=== PATIENT | male | born 1965 ===

== ENCOUNTER 2016-10-13 02:54 | Inpatient (IN) | payer MEDICAID, OTHER ==
[2016-10-13] MEDS ORDERED: Ampicillin/Sulbactam 3 GM in Sodium Chloride 0.9% 100 ML IVPB STA (03:30)
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
[2016-10-13 03:43] LABS: VENOUS BLOOD GAS BASE EXCESS 1.1 mmol/L (0.0-2.0); VENOUS BLOOD GAS PCO2 37 mmHg (40-60); VENOUS BLOOD GAS PO2 60 mm/Hg (30-55); VENOUS BLOOD PH 7.44 (7.32-7.43)
[2016-10-13] MEDS ORDERED: Vancomycin 1 g Inj ONE (03:43)
[2016-10-13 03:47] LABS: BASO # 0.1 K/uL (0.0-0.2); BASO % 0.8 % (0.0-2.0); EOS # 0.5 K/uL (0.0-0.7); EOS % 4.3 % (0.0-4.0); HEMOGLOBIN 12.6 g/dL (12.0-18.0); LYMPH # 2.3 K/uL (1.0-4.3); LYMPH % 20.6 % (20.0-40.0); MEAN CELL VOLUME 88.6 fl (80.0-94.0); MEAN CORPUSCULAR HEMOGLOBIN 30.9 pg (27.0-31.0); MEAN CORPUSCULAR HGB CONC 34.9 g/dL (33.0-37.0); MEAN PLATELET VOLUME 8.2 fl (7.2-11.7); MONO # 1.4 K/uL (0.0-0.8); NEUT % 62.3 % (50.0-75.0); NRBC % 0.1 % (0.0-0.0); RBC 4.08 Mil/uL (4.40-5.90); RED CELL DISTRIBUTION WIDTH 13.4 % (11.5-14.5); WHITE BLOOD COUNT 11.3 K/uL (4.8-10.8)
[2016-10-13] MEDS ORDERED: Sodium Chloride 0.9% 50 ML IV ONE (03:54)
[2016-10-13] MEDS ORDERED: Iohexol 300 100 ML IJ ONE (03:54)
[2016-10-13 03:56] LABS: ALB/GLOB RATIO 1.1 (1.0-2.1); ALT/SGPT 58 U/L (21-72); AST/SGOT 38 U/L (17-59); BLOOD UREA NITROGEN 16 mg/dl (9-20); CALCIUM 8.9 mg/dL (8.4-10.2); GFR AFRICAN-AMERICAN > 60; GFR NON-AFRICAN AMERICAN > 60
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
[2016-10-13] MEDS: Sodium Chloride 0.9% 1,000 ML IV SCH ×3 (08:43→22:01)
[2016-10-13] MEDS: Potassium CL 10mEq/100ml 100 ML IVPB SCH ×2 (08:46→14:54)
[2016-10-13 09:08] LABS: INR 1.1 (0.9-1.2); PARTIAL THROMBOPLASTIN TIME 32.7 Seconds (25.6-37.1); PROTHROMBIN TIME 12.9 Seconds (9.8-13.1)
[2016-10-13] MEDS ORDERED: Piperacillin/Tazobact 3.375 GM in Sodium Chloride 0.9% 100 ML IVPB SCH (10:00)
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
[2016-10-13] MEDS ORDERED: Lactated Ringer's 1,000 ML IV ONE ×2 (12:36)
--- NOTE | 2016-10-13 13:17 | PCM.SURG1 ---
Surgeon's Initial Post Op Note - Surgeon's Notes Surgeon: Aimee Plant Packer: Evi PGY3, Virgil PGY1 Type of Anesthesia: General LMA Pre-Operative Diagnosis: Left thigh abscess Operative Findings: Large left medial thigh abscess w. puss and foreign body Post-Operative Diagnosis: same Operation Performed: Incision and drainage of abscess, removal of foreign body, debridement of abscess wall Specimen/Specimens Removed: cultures and foreign body Estimated Blood Loss: EBL {In ML}: 10 Blood Products Given: N/A Drains Used: No Drains Post-Op Condition: Good Date of Surgery/Procedure: 10/13/16 Time of Surgery/Procedure: 13:17
[2016-10-13] MEDS ORDERED: Oxycodone/Acetaminophen 5/325 mg Tab PO PRN ×2 (13:18→13:19)
[2016-10-13] MEDS ORDERED: Dexamethasone 4 mg/1 ml IVP PRN (13:20)
[2016-10-13] MEDS ORDERED: HYDROmorphone 0.5 mg/0.5 ml ISec IVP PRN (13:20)
[2016-10-13] MEDS ORDERED: Pneumococcal 23-Valent Vaccine IM ONE (13:26)
[2016-10-13 15:35] LABS: BLOOD UREA NITROGEN 10 mg/dl (9-20); CALCIUM 8.3 mg/dL (8.4-10.2); GFR AFRICAN-AMERICAN > 60; GFR NON-AFRICAN AMERICAN > 60
--- NOTE | 2016-10-13 22:44 | CARD ---
APPROVED REPORT EKG Measurement Heart [id number] <Conclusion> Normal sinus rhythm Normal ECG
[2016-10-13] MEDS: Piperacillin/Tazobact 3.375 GM in Sodium Chloride 0.9% 100 ML IVPB SCH (23:36)
[2016-10-14] MEDS: Piperacillin/Tazobact 3.375 GM in Sodium Chloride 0.9% 100 ML IVPB SCH ×4 (05:18→23:05)
[2016-10-14 05:40] LABS: HEMOGLOBIN 11.7 g/dL (12.0-18.0); MEAN CELL VOLUME 90.5 fl (80.0-94.0); MEAN CORPUSCULAR HEMOGLOBIN 30.1 pg (27.0-31.0); MEAN CORPUSCULAR HGB CONC 33.3 g/dL (33.0-37.0); RBC 3.87 Mil/uL (4.40-5.90); RED CELL DISTRIBUTION WIDTH 13.2 % (11.5-14.5); WHITE BLOOD COUNT 8.1 K/uL (4.8-10.8)
[2016-10-14] MEDS: Sodium Chloride 0.9% 1,000 ML IV SCH (06:35)
--- NOTE | 2016-10-14 10:58 | CP.PCM.PN ---
Subjective - Date & Time of Evaluation Date of Evaluation: 10/14/16 Time of Evaluation: 07:30 - Subjective Subjective: Patient seen and examined at bedside this AM. NAEO. Patient states that pain is well controlled, denies fevers, chills, or any other symptoms Objective - Vital Signs/Intake and Output Vital Signs (last 24 hours): Temp Pulse Resp BP Pulse Ox 98.3 F 59 L 20 105/63 98 10/14/16 08:10 10/14/16 08:10 10/14/16 08:10 10/14/16 08:10 10/14/16 08:10 - Medications Medications: Current Medications Famotidine (Pepcid) 20 mg IVP DAILY [facility] Last Admin: 10/14/16 09:10 Dose: 20 mg Piperacillin Sod/Tazobactam (Sod 3.375 gm/ Sodium Chloride) 100 mls @ 100 mls/ hr IVPB 0000,0600,1200,1800 [facility] Last Admin: 10/14/16 05:18 Dose: 100 mls/hr Vancomycin HCl 1 gm/ Sodium (Chloride) 250 mls @ 166.667 mls/hr IVPB Q12@0900, 2100 [facility] Last Admin: 10/14/16 09:07 Dose: 166.667 mls/hr Oxycodone/Acetaminophen (Percocet 5/325 Mg Tab) 1 tab PO Q4 PRN PRN Reason: Pain, moderate (4-7) Stop: 10/16/16 13:19 Last Admin: 10/13/16 18:11 Dose: 1 tab Oxycodone/Acetaminophen (Percocet 5/325 Mg Tab) 2 tab PO Q4 PRN PRN Reason: Pain, severe (8-10) Stop: 10/16/16 13:20 - Labs Labs: 10/14/16 05:24 10/13/16 15:10 PT 12.9 Seconds (9.8-13.1) 10/13/16 08:00 INR 1.1 (0.9-1.2) 10/13/16 08:00 APTT 32.7 Seconds (25.6-37.1) 10/13/16 08:00 Assessment and Plan - Assessment and Plan (Free Text) Assessment: 51M POD#1 s/p I&D of left thigh abscess afebrile VSS WBC: wnl Changed packing bedside Plan: - Daily packing changes with iodoform gauze - F/U wound cultures - pain control - IV antibiotics Discussed with Dr Aimee [place], PGY2
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
[2016-10-15] MEDS: Piperacillin/Tazobact 3.375 GM in Sodium Chloride 0.9% 100 ML IVPB SCH ×3 (05:06→17:28)
[2016-10-15 06:59] LABS: HEMOGLOBIN 12.3 g/dL (12.0-18.0); MEAN CELL VOLUME 90.7 fl (80.0-94.0); MEAN CORPUSCULAR HEMOGLOBIN 30.4 pg (27.0-31.0); MEAN CORPUSCULAR HGB CONC 33.5 g/dL (33.0-37.0); RBC 4.06 Mil/uL (4.40-5.90); RED CELL DISTRIBUTION WIDTH 13.7 % (11.5-14.5); WHITE BLOOD COUNT 6.4 K/uL (4.8-10.8)
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
[2016-10-15] MEDS: Enoxaparin 40 mg Syringe SC SCH (09:44)
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
[2016-10-16] MEDS: Piperacillin/Tazobact 3.375 GM in Sodium Chloride 0.9% 100 ML IVPB SCH ×2 (00:05→06:22)
[2016-10-16 06:52] LABS: HEMOGLOBIN 12.9 g/dL (12.0-18.0); MEAN CORPUSCULAR HEMOGLOBIN 30.2 pg (27.0-31.0); MEAN CORPUSCULAR HGB CONC 33.6 g/dL (33.0-37.0); RBC 4.29 Mil/uL (4.40-5.90); RED CELL DISTRIBUTION WIDTH 13.4 % (11.5-14.5); WHITE BLOOD COUNT 7.3 K/uL (4.8-10.8)
[2016-10-16 07:42] VITALS: BP 118/77; PULSE 55; RESP 20; TEMP 97.9; O2SAT 97
[2016-10-16] MEDS: Enoxaparin 40 mg Syringe SC SCH (08:39)
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
--- NOTE | 2016-10-16 11:34 | CP.PCM.PN ---
Subjective - Date & Time of Evaluation Date of Evaluation: 10/16/16 Time of Evaluation: 11:31 - Subjective Subjective: Surgery for Dr. Yu Pt s&e. MADISYN. Pt denies F/C/N/V/D/CP/SOB. Dressing changed this AM. Tolerating PO. Objective - Vital Signs/Intake and Output Vital Signs (last 24 hours): Temp Pulse Resp BP Pulse Ox 97.9 F 55 L 20 118/77 97 10/16/16 07:42 10/16/16 07:42 10/16/16 07:42 10/16/16 07:42 10/16/16 07:42 - Medications Medications: Current Medications Amoxicillin/Clavulanate Potassium (Augmentin 875 Mg-125 Mg Tab) 1 tab PO Q12 [facility] Clindamycin HCl (Cleocin) 300 mg PO Q8 [facility] Docusate Sodium (Colace) 100 mg PO BID [facility] Last Admin: 10/16/16 08:39 Dose: 100 mg Enoxaparin Sodium (Lovenox) 40 mg SC DAILY [facility] PRN Reason: Protocol Last Admin: 10/16/16 08:39 Dose: 40 mg Famotidine (Pepcid) 20 mg IVP DAILY [facility] Last Admin: 10/16/16 08:39 Dose: 20 mg Ibuprofen (Motrin Tab) 600 mg PO Q6 PRN PRN Reason: Headache Last Admin: 10/16/16 00:25 Dose: 600 mg Oxycodone/Acetaminophen (Percocet 5/325 Mg Tab) 1 tab PO Q4 PRN PRN Reason: Pain, moderate (4-7) Stop: 10/16/16 13:19 Last Admin: 10/13/16 18:11 Dose: 1 tab Oxycodone/Acetaminophen (Percocet 5/325 Mg Tab) 2 tab PO Q4 PRN PRN Reason: Pain, severe (8-10) Stop: 10/16/16 13:20 Sennosides (Senokot Tab) 8.6 mg PO HS [facility] Last Admin: 10/15/16 22:30 Dose: 8.6 mg - Labs Labs: 10/16/16 05:30 10/13/16 15:10 PT 12.9 Seconds (9.8-13.1) 10/13/16 08:00 INR 1.1 (0.9-1.2) 10/13/16 08:00 APTT 32.7 Seconds (25.6-37.1) 10/13/16 08:00 - Constitutional Appears: Well, No Acute Distress - Head Exam Head Exam: ATRAUMATIC, NORMAL INSPECTION, NORMOCEPHALIC - Eye Exam Eye Exam: EOMI, Normal appearance, PERRL Pupil Exam: NORMAL ACCOMODATION, PERRL - ENT Exam ENT Exam: Mucous Membranes Moist, Normal Exam - Neck Exam Neck Exam: Full ROM, Normal Inspection. absent: Lymphadenopathy - Respiratory Exam Respiratory Exam: Clear to Ausculation Bilateral, NORMAL BREATHING PATTERN - Cardiovascular Exam Cardiovascular Exam: REGULAR RHYTHM, +S1, +S2. absent: Murmur - GI/Abdominal Exam GI & Abdominal Exam: Soft, Normal Bowel Sounds. absent: Distended, Firm, Guarding, Tenderness - Exam Exam: NORMAL INSPECTION - Extremities Exam Extremities Exam: Full ROM, Normal Capillary Refill, Tenderness. absent: Calf Tenderness, Joint Swelling, Pedal Edema Additional comments: L inner thigh has [id number] opening. Packing changed. dressing changed. Dressing was saturated. - Back Exam Back Exam: NORMAL INSPECTION - Neurological Exam Neurological Exam: Alert, Awake, CN II-XII Intact, Normal Gait, Oriented x3 - Psychiatric Exam Psychiatric exam: Normal Affect, Normal Mood - Skin Skin Exam: Dry, Intact, Normal Color, Warm Assessment and Plan - Assessment and Plan (Free Text) Assessment: 51M POD#3 s/p I&D of left thigh abscess afebrile VSS WBC: wnl Changed packing bedside Plan: - Daily packing changes with iodoform gauze: f/u at wound clinic for packing changes. -Ok to take shower tomorrow. -Take shower before going to wound care for packing change. -F/u at Dr. Yu's office in 2 weeks - F/U wound cultures - pain control Discussed with Dr Yu
[2016-10-16] MEDS ORDERED: Amoxicillin-Clav 875-125 mg Tab PO SCH (21:00)
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
== END 2016-10-16 13:45 | disposition home or self-care (01) | DRG 263 ==
LOC: H.ER 02:54 → H.ERHOLD 05:15 → H.MEDSURG1 06:50
PROVIDERS: ADMIT Internal Medicine; ATTEND Internal Medicine
PROC: 0HBJXZZ Excision of Left Upper Leg Skin, External Approach (ICD-10-PCS; 2016-10-13)
PROC: 0H9JXZZ Drainage of Left Upper Leg Skin, External Approach (ICD-10-PCS; 2016-10-13)
PROC: 0HCJXZZ Extirpation of Matter from Left Upper Leg Skin, External Approach (ICD-10-PCS; 2016-10-13)
PROC: 3E0234Z Introduction of Serum, Toxoid and Vaccine into Muscle, Percutaneous Approach (ICD-10-PCS; principal; 2016-10-13 12:00)
DX: L03.116 Cellulitis of left lower limb (principal); E87.6 Hypokalemia; Z23 Encounter for immunization; M79.5 Residual foreign body in soft tissue

== ENCOUNTER 2017-01-06 10:42 | Emergency (ER) | payer SELFPAY ==
[2017-01-06 11:40] VITALS: BP 129/84; PULSE 65; RESP 18; TEMP 98.5; O2SAT 96
--- NOTE | 2017-01-06 13:29 | ED PDOC ---
Upper Extremity Pain/Injury Time Seen by Provider: 01/06/17 12:10 Chief Complaint (Nursing): Abnormal Skin Integrity Chief Complaint (Provider): Finger laceration History/Exam Limitations: no limitations Onset/Duration Of Symptoms: Days (x1) Current Symptoms Are (Timing): Still Present Severity: Mild Additional Complaint(s): Antonio Alston is a 51 year old right hand dominant male who presents to the emergency department due to an injury to the left 5th digit sustained a 2 am. 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 He applied pressure dressing but did not seek medical attention at that time. He presents this afternoon for further evaluation. Patient not sure of last tetanus. No active bleeding noted. He has mild pain to affected area with no numbness or tingling. PMD: [facility] Past Medical History Reviewed: Historical Data, Nursing Documentation, Vital Signs Vital Signs: Last Vital Signs Temp 98.5 F 01/06/17 11:37 Pulse 65 01/06/17 11:37 Resp 18 01/06/17 11:37 BP 129/84 01/06/17 11:37 Pulse Ox 96 01/06/17 11:37 - Medical History PMH: No Chronic Diseases - Surgical History Other surgeries: left leg surgery, abdominal ex lap - Family History Family History: States: No Known Family Hx - Living Arrangements Living Arrangements: With Family - Social History Current smoker - smoking cessation education provided: No Ex-Smoker (has not smoked in the last 12 months): Yes (quit 20 years ago) Alcohol: Social (beers on weekends) Drugs: Denies - Immunization History Hx Tetanus Toxoid Vaccination: No (not sure of last tetanus) - Home Medications Home Medications: Ambulatory Orders Medication Instructions Recorded Ibuprofen [Motrin Tab] 1 tab PO PRN PRN 10/13/16 Amoxicillin/Clavulanate [Augmentin 1 tab PO Q12 #20 tab 10/16/16 875 MG-125 MG Tab] Clindamycin [Cleocin] 300 mg PO Q8 #30 cap 10/16/16 - Allergies Allergies/Adverse Reactions: Allergies Allergy/AdvReac Type Severity Reaction Status Date / Time No Known Allergies Allergy Verified 01/06/17 11:07 Review of Systems ROS Statement: Except As Marked, All Systems Reviewed And Found Negative Constitutional: Negative for: Fever, Chills Musculoskeletal: Positive for: Hand Pain (left 5th digit laceration) Physical Exam - Reviewed Nursing Documentation Reviewed: Yes Vital Signs Reviewed: Yes - Physical Exam Appears: Positive for: Well, Non-toxic, No Acute Distress Skin: Positive for: Normal Color, Warm, Dry. Negative for: Rash Eye Exam: Positive for: Normal appearance Respiratory: Negative for: Respiratory Distress Extremity: Positive for: Other (1 cm superficial laceration to palmar aspect left 5th digit proximally, no active bleeding, no FB, normal distal sensation, normal sensation surrounding wound) Neurologic/Psych: Positive for: Alert, Oriented - ECG O2 Sat by Pulse Oximetry: 96 (RA) Pulse Ox Interpretation: Normal Medical Decision Making Medical Decision Making: Initial Impression: 51 year old male with left 5th digit superficial laceration Initial Plan: --Adacel 0.5 ml IM Wound is very superficial and over 12 hours old, no sutures indicated. Wound dressed with bacitracin and gauze wrap after irrigation. Patient given wound care instructions and was advised to follow-up in 2-3 days with clinic. Scribe Attestation: Documented by Ruben Pastrana, acting as a scribe for Koirna HERNANDEZ. Provider Scribe Attestation: All medical record entries made by the Scribe were at my direction and personally dictated by me. I have reviewed the chart and agree that the record accurately reflects my personal performance of the history, physical exam, medical decision making, and the department course for this patient. I have also personally directed, reviewed, and agree with the discharge instructions and disposition. Disposition - Clinical Impression Clinical Impression: Finger laceration, Requires a booster tetanus Counseled Patient/Family Regarding: Diagnosis - Disposition Referrals: [facility] [Outside] Disposition: Routine/Home Disposition Time: 13:57 Condition: STABLE Additional Instructions: Keep wounds clean and dry. Take Tylenol as needed for pain. Follow up with clinic in 2-3 days. Instructions: Finger Laceration (ED), Laceration Without Closure (ED), Diphtheria/Acellular Pertussis/Tetanus Booster Vaccine (Tdap) (Injection) Forms: [employer] (Eritrean) Print Language: KYRGYZ
[2017-01-06] MEDS ORDERED: Bacitracin 500 Units/gm Oint Foilpak UD ONE (13:50)
== END 2017-01-06 14:04 | disposition home or self-care (01) ==
LOC: H.ER 10:42
DX: S61.207A Unspecified open wound of left little finger without damage to nail, initial encounter (principal); W26.8XXA Contact with other sharp object(s), not elsewhere classified, initial encounter; Y99.0 Civilian activity done for income or pay

== ENCOUNTER 2017-08-15 21:09 | Emergency (ER) | payer SELFPAY ==
[2017-08-15 21:09] VITALS: BMI 27.3
[2017-08-15 22:45] VITALS: RESP 18
[2017-08-15] MEDS ORDERED: Sodium Chloride 0.9% 1,000 ML IV STA (23:15)
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
[2017-08-15 23:53] LABS: BASO # 0.1 K/uL (0.0-0.2); BASO % 0.9 % (0.0-2.0); EOS # 0.2 K/uL (0.0-0.7); EOS % 2.9 % (0.0-4.0); HEMOGLOBIN 13.8 g/dL (12.0-18.0); LYMPH # 2.4 K/uL (1.0-4.3); LYMPH % 33.2 % (20.0-40.0); MEAN CELL VOLUME 91.3 fl (80.0-94.0); MEAN CORPUSCULAR HEMOGLOBIN 30.5 pg (27.0-31.0); MEAN CORPUSCULAR HGB CONC 33.4 g/dL (33.0-37.0); MEAN PLATELET VOLUME 9.3 fl (7.2-11.7); MONO # 1.1 K/uL (0.0-0.8); NEUT # 3.3 K/uL (1.8-7.0); NRBC % 0.1 % (0.0-0.0); RBC 4.51 Mil/uL (4.40-5.90); RED CELL DISTRIBUTION WIDTH 14.1 % (11.5-14.5); WHITE BLOOD COUNT 7.1 K/uL (4.8-10.8)
[2017-08-16 00:01] LABS: ALB/GLOB RATIO 1.1 (1.0-2.1); ALBUMIN 4.2 g/dL (3.5-5.0); ALT/SGPT 47 U/L (21-72); AST/SGOT 27 U/L (17-59); BLOOD UREA NITROGEN 12 mg/dl (9-20); CALCIUM 8.8 mg/dL (8.4-10.2); GFR AFRICAN-AMERICAN > 60; GFR NON-AFRICAN AMERICAN > 60
[2017-08-16] MEDS ORDERED: Sodium Chloride 0.9% 100 ML ONE (00:16)
[2017-08-16] MEDS ORDERED: Iohexol 300 100 ML IJ ONE (00:16)
--- NOTE | 2017-08-16 01:26 | CT ---
EXAM: CT Left Lower Extremity With Intravenous Contrast, Femur CLINICAL HISTORY: 52 years old, male; Signs and symptoms; Other: Discharge; Patient HX: Please see chart; Additional info: Left inner thigh TECHNIQUE: Axial computed tomography images of the left femur with intravenous contrast. All CT scans at this facility use one or more dose reduction techniques, viz.: automated exposure control; ma/kV adjustment per patient size (including targeted exams where dose is matched to indication; i.e. head); or iterative reconstruction technique. Coronal and sagittal reformatted images were created and reviewed. CONTRAST: 90 mL of [id number] administered intravenously. COMPARISON: CT - EXT LOWER WITH CONTRAST LEFT 2016-10-13 04:17 FINDINGS: Bones/joints: No acute fracture. Mild tricompartment osteoarthritis of knee. No definite cortical destruction. Soft tissues: Apparent 1.6 x 0.8 x 1.3 cm collection with faint peripheral enhancement along subcutaneous tissues of medial left thigh. Minimal stranding within adjacent fat. Mild overlying skin thickening. Scattered shrapnel within visualized lower extremities. Varicosities. IMPRESSION: 1. Probable focal cellulitis with phlegmon/early abscess of left thigh. 2. Incidental/non-acute findings are described above.
--- NOTE | 2017-08-16 01:29 | ED PDOC ---
- Laboratory Results Result Diagrams: 08/15/17 23:46 08/15/17 23:46 - ECG O2 Sat by Pulse Oximetry: 99 - Progress ED Course And Treament: Pt. evaluated by Dr. Martinez, surgical appliances salesperson, who recommends Augmentin or Bactrim DS. Case d/w Dr. Fair who agrees with care. Medical Decision Making Medical Decision Makin:00: Transfer of staff from MARY Chan to Rene Sol pending CT results. [facility] Final Radiology Report Call: [phone] assistance Online chat: [email or web address] Patient Name: JESSICA MUHAMMAD (Age): 1965 52 Gender: M Date of Exam: 08/16/2017 Referring Physician: Sonya Chan PA-C # of Images: [id number] Ordered As: CT EXT LOWER WITH CONTRAST LEFT CONFIDENTIALITY STATEMENT This report is intended only for use by the referring physician, and only in accordance with law. If you received this in error, call [phone]. Page 1 of 1 EXAM: CT Left Lower Extremity With Intravenous Contrast, Femur CLINICAL HISTORY: 52 years old, male; Signs and symptoms; Other: Discharge; Patient HX: Please see chart; Additional info: Left inner thigh TECHNIQUE: Axial computed tomography images of the left femur with intravenous contrast. All CT scans at this facility use one or more dose reduction techniques, viz.: automated exposure control; ma/kV adjustment per patient size (including targeted exams where dose is matched to indication; i.e. head); or iterative reconstruction technique. Coronal and sagittal reformatted images were created and reviewed. CONTRAST: 90 mL of [id number] administered intravenously. COMPARISON: CT - EXT LOWER WITH CONTRAST LEFT 2016-10-13 04:17 FINDINGS: Bones/joints: No acute fracture. Mild tricompartment osteoarthritis of knee. No definite cortical destruction. Soft tissues: Apparent 1.6 x 0.8 x 1.3 cm collection with faint peripheral enhancement along subcutaneous tissues of medial left thigh. Minimal stranding within adjacent fat. Mild overlying skin thickening. Scattered shrapnel within visualized lower extremities. Varicosities. IMPRESSION: 1. Probable focal cellulitis with phlegmon/early abscess of left thigh. 2. Incidental/non-acute findings are described above. Thank you for allowing us to participate in the care of your patient. Dictated and Authenticated by: Kulwant Alcantara MD 08/16/2017 1:26 AM Eastern Time ([place] & [place]) Scribe Attestation Documented by Amy Cordero acting as a scribe for MARY Parikh MD Scribe Attestation All medical record entries made by the Scribe were at my direction and personally dictated by me. I have reviewed the chart and agree that the record accurately reflects my personal performance of the history, physical exam, medical decision making, and the department course for this patient. I have also personally directed, reviewed, and agree with the discharge instructions and disposition. Disposition - Clinical Impression Clinical Impression: Abscess, Acute bronchitis - POA Present On Arrival: None - Disposition Referrals: Avery Yu MD [Staff Provider] - [facility] [Outside] Disposition: Routine/Home Disposition Time: 02:03 Condition: STABLE Additional Instructions: Follow up with Dr. Yu's office for further evaluation. Return to ED immediately if symptoms worsen. Prescriptions: Azithromycin [Zithromax] 250 mg PO DAILY #6 tab Promethazine DM [Phenergan DM Syrup] 5 - 10 ml PO Q8 PRN #120 ml PRN Reason: Cough Sulfamethoxazole/Trimethoprim [Bactrim DS 800 mg-160 mg] 2 tab PO BID #28 tab Instructions: Acute Bronchitis Forms: [facility] (Korean) Print Language: HONG KONGER
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
[2017-08-16 03:08] VITALS: BP 112/71; PULSE 67; TEMP 98; O2SAT 97
--- NOTE | 2017-08-16 09:04 | RAD ---
HISTORY: cough COMPARISON: Chest radiograph dated 10/13/2016. TECHNIQUE: Chest PA and lateral FINDINGS: LUNGS: No active pulmonary disease. Curvilinear metallic foreign body redemonstrated at the left base. PLEURA: No significant pleural effusion identified. No pneumothorax apparent. CARDIOVASCULAR: Atherosclerotic aortic calcifications. Cardiomediastinal silhouette stably enlarged. OSSEOUS STRUCTURES: Unchanged. VISUALIZED UPPER ABDOMEN: Normal. OTHER FINDINGS: None. IMPRESSION: No active disease.
== END 2017-08-16 02:20 | disposition home or self-care (01) ==
LOC: H.ER 21:09
DX: T81.89XA Other complications of procedures, not elsewhere classified, initial encounter (principal); N40.0 Benign prostatic hyperplasia without lower urinary tract symptoms; J40 Bronchitis, not specified as acute or chronic; Z87.891 Personal history of nicotine dependence; L02.414 Cutaneous abscess of left upper limb
CPT/HCPCS: 71046; 73701; 80053; 85025; 87040; 99284; J7040; Q9967

== ENCOUNTER 2017-09-22 09:18 | Day surgery (SDC) | payer SELFPAY ==
[2017-09-22 10:08] VITALS: BMI 27.6
[2017-09-22] MEDS ORDERED: Lactated Ringer's 500 ML IV ONE (10:10)
[2017-09-22 10:18] VITALS: TEMP 97.2; O2SAT 99
[2017-09-22] MEDS ORDERED: Propofol 10 mg/ml Inj (20 ML) ONE (12:34)
[2017-09-22 13:46] VITALS: BP 108/70; PULSE 56; RESP 16
== END 2017-09-22 14:00 | disposition home or self-care (01) ==
LOC: H.ENDO 09:18
PROVIDERS: ATTEND Internal Medicine Gastroenterology
DX: Z12.11 Encounter for screening for malignant neoplasm of colon (principal); K64.0 First degree hemorrhoids
CPT/HCPCS: 45378; J2001; J2704; J7120

== ENCOUNTER 2017-10-19 13:55 | Emergency (ER) | payer SELFPAY ==
[2017-10-19 13:56] VITALS: BMI 27.6
[2017-10-19 14:26] VITALS: BP 121/77; PULSE 66; RESP 20; TEMP 98; O2SAT 100
== END 2017-10-19 14:30 | disposition left against medical advice (07) ==
LOC: H.ER 13:55
DX: Z02.89 Encounter for other administrative examinations (principal)